=== PATIENT | female | born 1980 | race Caucasian/White ===

== ENCOUNTER → 2016-08-09 | Outpatient (CLI) | payer BC | LOC: BHSO 09:45 | DX: F90.0 Attention-deficit hyperactivity disorder, predominantly inattentive type (principal) ==

== ENCOUNTER → 2016-09-19 | Outpatient (CLI) | payer BC | LOC: BHSO 09:23 | DX: F90.0 Attention-deficit hyperactivity disorder, predominantly inattentive type (principal) ==

== ENCOUNTER → 2016-10-25 | Outpatient (CLI) | payer BC | LOC: BHSO 15:23 | DX: F90.0 Attention-deficit hyperactivity disorder, predominantly inattentive type (principal) ==

== ENCOUNTER → 2017-03-16 | Outpatient (CLI) | payer BC | LOC: BHSO 11:53 | DX: F90.0 Attention-deficit hyperactivity disorder, predominantly inattentive type (principal) | CPT/HCPCS: G0463 ==

== ENCOUNTER → 2017-04-10 | Outpatient (CLI) | payer BC | LOC: BHSO 14:41 | DX: F90.0 Attention-deficit hyperactivity disorder, predominantly inattentive type (principal) | CPT/HCPCS: G0463 ==

== ENCOUNTER 2017-06-02 03:55 | Emergency (ER) | payer BC ==
[~2017-06-02] VITALS: Ht 175.3 cm; Wt 93.2 kg
[2017-06-02 03:58] VITALS: BP 127/67; TEMP 98.3
[2017-06-02] MEDS ORDERED: MYDAYIS ER 3737.5 MG PO (04:28)
[2017-06-02] MEDS ORDERED: ATIVAN 1MG T1 MG/TAB PO (04:28)
[2017-06-02] MEDS ORDERED: MEDROL 4MG DOSPA4 MG PO (06:11)
[2017-06-02 06:29] VITALS: PULSE 76
== END 2017-06-02 06:29 | disposition home or self-care (01) ==
LOC: COL.ER 03:55
DX: R20.0 Anesthesia of skin (principal); F41.9 Anxiety disorder, unspecified; F17.210 Nicotine dependence, cigarettes, uncomplicated
CPT/HCPCS: J7512

== ENCOUNTER 2018-03-29 22:13 | Emergency (ER) | payer BC ==
[~2018-03-29] VITALS: Ht 175.3 cm; Wt 90.0 kg
[~2018-03-29 22:13] MED LIST: ATIVAN 1MG T1 MG/TAB PO; MEDROL 4MG DOSPA4 MG PO; MYDAYIS ER 3737.5 MG PO
[2018-03-29 22:19] VITALS: BP 140/88; TEMP 97.7
[2018-03-29] MEDS ORDERED: PREDNISONE20 MG PO (23:02)
[2018-03-29] MEDS ORDERED: AMOXICILLIN 8751 TAB PO (23:02)
[2018-03-29 23:21] VITALS: PULSE 81
== END 2018-03-29 23:21 | disposition home or self-care (01) ==
LOC: COL.ER 22:13
DX: H92.03 Otalgia, bilateral (principal); H69.83 Other specified disorders of Eustachian tube, bilateral; F17.210 Nicotine dependence, cigarettes, uncomplicated; F90.9 Attention-deficit hyperactivity disorder, unspecified type
CPT/HCPCS: J7512

== ENCOUNTER 2018-04-16 21:01 | Emergency (ER) | payer BC ==
[~2018-04-16] VITALS: Ht 177.8 cm; Wt 90.9 kg
[~2018-04-16 21:01] MED LIST changes: +AMOXICILLIN 8751 TAB PO; +PREDNISONE20 MG PO
[2018-04-16 21:22] VITALS: BP 137/96; PULSE 96; TEMP 97.7
[2018-04-16] MEDS ORDERED: CILOXAN .3% EY2.5 ML OT (22:41)
== END 2018-04-16 22:56 | disposition home or self-care (01) ==
LOC: COL.ER 21:01
DX: H92.02 Otalgia, left ear (principal); F90.9 Attention-deficit hyperactivity disorder, unspecified type; F17.210 Nicotine dependence, cigarettes, uncomplicated